=== PATIENT | male | born 1960 | race American Indian/Alaskan Native ===

== ENCOUNTER 2016-06-15 00:57 | Emergency (ER) | payer MEDICARE | END 2016-06-15 02:02 | disposition left against medical advice (07) | LOC: ED 00:57 | DX: Z53.21 Procedure and treatment not carried out due to patient leaving prior to being seen by health care provider (principal) ==

== ENCOUNTER 2016-06-15 08:28 | Emergency (ER) | payer MEDICARE ==
[2016-06-15 08:37] VITALS: BP 115/81
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
== END 2016-06-15 10:54 | disposition home or self-care (01) ==
LOC: ED 08:28
DX: S46.911A Strain of unspecified muscle, fascia and tendon at shoulder and upper arm level, right arm, initial encounter (principal); I10 Essential (primary) hypertension; M79.1 Myalgia; F17.200 Nicotine dependence, unspecified, uncomplicated; V89.2XXA Person injured in unspecified motor-vehicle accident, traffic, initial encounter; Y93.89 Activity, other specified; Y92.89 Other specified places as the place of occurrence of the external cause; Y99.8 Other external cause status
CPT/HCPCS: 99282

== ENCOUNTER 2017-03-24 09:20 | Emergency (ER) | payer MEDICARE, OTHER ==
[2017-03-24 09:43] VITALS: BP 146/89
[2017-03-24 10:05] LABS: Basophils % (Auto) 0.3 % (0.0-1.8); Eosinophils % (Auto) 1.1 % (0.0-4.3); Hematocrit 43.3 % (35.5-45.6); Hemoglobin 13.8 gm/dl (11.8-15.2); Mean Corpuscular HGB Conc 32 % (32-34); Mean Corpuscular Hemoglobin 29 pg (28-32); Mean Corpuscular Volume 90 fl (84-94); Platelet Count 187 K/mm3 (140-440); Red Blood Count 4.84 M/mm3 (3.65-5.03); Red Cell Distribution Width 13.6 % (13.2-15.2); White Blood Count 8.4 K/mm3 (4.5-11.0)
[2017-03-24 10:19] LABS: Bilirubin,Urine NEG (Negative); Blood,Urine LG (Negative); Ketones,Urine NEG (Negative); Leukocyte Esterase,Urine NEG (Negative); Mucus,Urine FEW /HPF; Nitrite,Urine NEG (Negative); Protein,Urine <15 mg/dL mg/dL (Negative); Urobilinogen,Urine < 2.0 mg/dL (<2.0)
[2017-03-24 10:29] LABS: Alanine Aminotransferase 27 units/L (7-56); Albumin 4.2 g/dL (3.9-5); Albumin/Globulin Ratio 1.4 %; Alkaline Phosphatase 97 units/L (35-129); Anion Gap 15 mmol/L; BUN/Creatinine Ratio 16; Blood Urea Nitrogen 13 mg/dL (9-20); Calcium 8.8 mg/dL (8.4-10.2); Carbon Dioxide 28 mmol/L (22-30); Glucose 118 mg/dL (75-100); Lipase 18 units/L (13-60); Potassium 4.4 mmol/L (3.6-5.0); Sodium 142 mmol/L (137-145); Total Protein 7.2 g/dL (6.3-8.2)
== END 2017-03-24 09:49 | disposition left against medical advice (07) ==
LOC: ED 09:20
DX: R10.9 Unspecified abdominal pain (principal); Z53.21 Procedure and treatment not carried out due to patient leaving prior to being seen by health care provider
CPT/HCPCS: 36415; 80053; 81001; 83690; 85025

== ENCOUNTER 2018-12-21 04:33 | Emergency (ER) | payer MEDICARE ==
[2018-12-21] MEDS ORDERED: TORADOL IM ONE (05:12)
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
[2018-12-21 06:27] VITALS: BP 113/72
== END 2018-12-21 06:20 | disposition home or self-care (01) ==
LOC: ED 04:33
DX: S16.1XXA Strain of muscle, fascia and tendon at neck level, initial encounter (principal); S39.012A Strain of muscle, fascia and tendon of lower back, initial encounter; I10 Essential (primary) hypertension; F17.200 Nicotine dependence, unspecified, uncomplicated; Z98.890 Other specified postprocedural states; Z79.899 Other long term (current) drug therapy; V49.49XA Driver injured in collision with other motor vehicles in traffic accident, initial encounter; Y93.89 Activity, other specified; Y92.410 Unspecified street and highway as the place of occurrence of the external cause; Y99.8 Other external cause status
CPT/HCPCS: 72040; 72100; 96372; 99283; J1885

== ENCOUNTER 2019-09-24 05:37 | Emergency (ER) | payer MEDICARE ==
[2019-09-24 05:43] VITALS: BP 113/87
[2019-09-24 06:00] LABS: Basophils % (Auto) 0.3 % (0.0-1.8); Eosinophils # (Auto) 0.1 K/mm3 (0.0-0.4); Eosinophils % (Auto) 1.1 % (0.0-4.3); Hematocrit 43.2 % (35.5-45.6); Hemoglobin 14.2 gm/dl (11.8-15.2); Lymphocytes # (Auto) 1.3 K/mm3 (1.2-5.4); Lymphocytes % (Auto) 24.3 % (13.4-35.0); Mean Corpuscular HGB Conc 33 % (32-34); Mean Corpuscular Volume 89 fl (84-94); Monocytes # (Auto) 0.5 K/mm3 (0.0-0.8); Monocytes % (Auto) 9.4 % (0.0-7.3); Platelet Count 184 K/mm3 (140-440); Red Blood Count 4.85 M/mm3 (3.65-5.03); Red Cell Distribution Width 13.5 % (13.2-15.2)
[2019-09-24 06:20] LABS: Alanine Aminotransferase 210 units/L (7-56); Albumin 4.2 g/dL (3.9-5); BUN/Creatinine Ratio 14; Blood Urea Nitrogen 15 mg/dL (9-20); Calcium 10.2 mg/dL (8.4-10.2); Hemolysis Index 14
[2019-09-24 06:26] LABS: Bilirubin,Urine NEG (Negative); Blood,Urine NEG (Negative); Color,Urine Yellow (Yellow); Mucus,Urine 2+ /HPF; Protein,Urine <15 mg/dL mg/dL (Negative); Urobilinogen,Urine < 2.0 mg/dL (<2.0)
[2019-09-24] MEDS ORDERED: SODIUM CHLORIDE 0.9% 1000 ML 1,000 ML IV ONE (07:11)
[2019-09-24] MEDS ORDERED: PANTOPRAZOLE 40 MG INJ IV ONE (07:11)
--- NOTE | 2019-09-24 07:12 | Emergency Department Report ---
ED Abdominal Pain HPI - General Chief Complaint: Abdominal Pain Stated Complaint: ABDOMINAL PAIN Time Seen by Provider: 09/24/19 07:09 Source: patient Mode of arrival: Ambulatory Limitations: No Limitations - History of Present Illness Initial Comments: 59 YO AA MALE COMES TO ER WITH DIFFUSE ABD PAIN- CRAMPY IN NATURE. NO N/V/D. NO FEVER OR CHILLS. PMH HTN AND CHRONIC BACK PAIN BM YESTERDAY- NORMAL PCP DR FELICIANO AMBULATORY AND NON TOXIC ON EXAM MD Complaint: abdominal pain -: Gradual, days(s) Location: diffuse Migration to: no migration Severity: mild Quality: cramping Consistency: intermittent Improves With: nothing Worsens With: nothing Associated Symptoms: denies other symptoms. denies: nausea, vomiting, diarrhea, fever, chills, constipation, dysuria, hematemesis, hematochezia, melena, hematuria, anorexia, syncope - Related Data Previous Rx's Medication Instructions Recorded Last Taken Type dilTIAZem [Cardizem] 90 mg PO DAILY #30 tablet 06/20/14 Unknown Rx Allergies Allergy/AdvReac Type Severity Reaction Status Date / Time No Known Allergies Allergy Verified 08/01/15 13:31 ED Review of Systems ROS: Stated complaint: ABDOMINAL PAIN Other details as noted in HPI Comment: All other systems reviewed and negative ED Past Medical Hx - Past Medical History Previous Medical History?: Yes Hx Hypertension: Yes Additional medical history: chronic back pain. - Surgical History Past Surgical History?: Yes Additional Surgical History: back surgery 1999 - Family History Family history: no significant - Social History Smoking Status: Current Every Day Smoker Substance Use Type: None - Medications Home Medications: Home Medications Medication Instructions Recorded Confirmed Last Taken Type dilTIAZem [Cardizem] 90 mg PO DAILY #30 tablet 06/20/14 Unknown Rx ED Physical Exam - General Limitations: No Limitations General appearance: alert, in no apparent distress - Head Head exam: Present: atraumatic, normocephalic - Eye Eye exam: Present: normal appearance - ENT ENT exam: Present: mucous membranes moist - Neck Neck exam: Present: normal inspection - Respiratory Respiratory exam: Present: normal lung sounds bilaterally. Absent: respiratory distress - Cardiovascular Cardiovascular Exam: Present: regular rate, normal rhythm. Absent: systolic murmur, diastolic murmur, rubs, gallop - GI/Abdominal GI/Abdominal exam: Present: soft, normal bowel sounds - Rectal Rectal exam: Present: deferred - Extremities Exam Extremities exam: Present: normal inspection - Back Exam Back exam: Present: normal inspection - Neurological Exam Neurological exam: Present: alert, oriented X3 - Psychiatric Psychiatric exam: Present: normal affect, normal mood - Skin Skin exam: Present: warm, dry, intact, normal color. Absent: rash ED Course Vital Signs 09/24/19 05:41 Temperature 98.2 F Pulse Rate 77 Respiratory 18 Rate Blood Pressure 113/87 O2 Sat by Pulse 99 Oximetry - Reevaluation(s) Reevaluation #1: 09/24/19 08:52 HOME RX OXY--NO TYLENOL CARDIZEM ED Medical Decision Making - Lab Data Result diagrams: 09/24/19 05:46 09/24/19 05:46 - Radiology Data Radiology results: report reviewed, image reviewed - Medical Decision Making Labs 09/24/19 09/24/19 09/24/19 05:46 05:46 05:46 WBC 5.2 RBC 4.85 Hgb 14.2 Hct 43.2 MCV 89 MCH 29 MCHC 33 RDW 13.5 Plt Count 184 Lymph % (Auto) 24.3 [place] % (Auto) 9.4 H Eos % (Auto) 1.1 Baso % (Auto) 0.3 Lymph # 1.3 [place] # 0.5 Eos # 0.1 Baso # 0.0 Seg Neutrophils % 64.9 Seg Neutrophils # 3.4 Sodium 142 Potassium 4.5 Chloride 103.0 Carbon Dioxide 26 Anion Gap 18 BUN 15 Creatinine 1.1 Estimated GFR > 60 BUN/Creatinine Ratio 14 Glucose 107 H Calcium 10.2 Total Bilirubin 0.40 AST 140 H ALT 210 H Alkaline Phosphatase 91 Total Protein 7.3 Albumin 4.2 Albumin/Globulin Ratio 1.4 Lipase 14 Urine Color Urine Turbidity Urine pH Ur Specific [place] Urine Protein Urine Glucose (UA) Urine Ketones Urine Blood Urine Nitrite Urine Bilirubin Urine Urobilinogen Ur Leukocyte Esterase Urine WBC (Auto) Urine RBC (Auto) Urine Mucus 09/24/19 Unknown WBC RBC Hgb Hct MCV MCH MCHC RDW Plt Count Lymph % (Auto) [place] % (Auto) Eos % (Auto) Baso % (Auto) Lymph # [place] # Eos # Baso # Seg Neutrophils % Seg Neutrophils # Sodium Potassium Chloride Carbon Dioxide Anion Gap BUN Creatinine Estimated GFR BUN/Creatinine Ratio Glucose Calcium Total Bilirubin AST ALT Alkaline Phosphatase Total Protein Albumin Albumin/Globulin Ratio Lipase Urine Color Yellow Urine Turbidity Clear Urine pH 5.0 Ur Specific [place] 1.025 Urine Protein <15 mg/dl Urine Glucose (UA) Neg Urine Ketones Neg Urine Blood Neg Urine Nitrite Neg Urine Bilirubin Neg Urine Urobilinogen < 2.0 Ur Leukocyte Esterase Neg Urine WBC (Auto) 1.0 Urine RBC (Auto) 2.0 Urine Mucus 2+ Vital Signs 09/24/19 05:41 Temperature 98.2 F Pulse Rate 77 Respiratory 18 Rate Blood Pressure 113/87 O2 Sat by Pulse 99 Oximetry LABS NOTED UA NOTED VS NORMAL NO FEVER AMBULATORY CT NOTED PT HAS PCP THAT HE SEES. PT EDUCATED ON FINDINGS OF TODAYS LABS EDUCATED ON LFT PT TAKING PO PT TO DC HOME WITH PCP AND GI FOLLOW UP. PT VERBALIZES UNDERSTANDING - Differential Diagnosis RO DIVERTICULAR DISEASE/ OSTRUCTION/CONSTIPATION Critical care attestation.: If time is entered above; I have spent that time in minutes in the direct care of this critically ill patient, excluding procedure time. ED Disposition Clinical Impression: Abdominal pain Disposition: DC-01 TO HOME OR SELFCARE Is pt being admited?: No Does the pt Need Aspirin: No Condition: Stable Additional Instructions: FOLLOW UP WITH GI DOCTOR REFERRAL BELOW AVOID TYLENOL YOU NEED TO MONITOR YOUR LIVER ENZYMES FOLLOW UP WITH PCP MAKE SURE YOU ARE TAKING A STOOL SOFTENER WITH YOUR OXY DIET AND ACTIVITY TOLERATED STAY WELL HYDRATED WITH WATER. Referrals: GILBERT NOVA MD [Staff Physician] - 3-5 Days Time of Disposition: 08:50
--- NOTE | 2019-09-24 08:37 | Cat Scan Report ---
CT ABDOMEN AND PELVIS W CON INDICATION / CLINICAL INFORMATION: MAIN: abd pain 100ml Omni 300 low abd an scrotal pain x 2 weeks. TECHNIQUE: All CT scans at this location are performed using CT dose reduction for ALARA by means of automated e xposure control. COMPARISON: None available. FINDINGS: No free fluid is seen in the abdomen. Bilateral renal cysts are present more numerous on the right th an the left. Mild atherosclerotic changes present without evidence of an aneurysm. No enlarged mesent nohemy or retroperitoneal lymph nodes are seen. The liver, spleen, pancreas and adrenal glands are norm al. In the pelvis, no free fluid is seen. No enlarged lymph nodes are identified. The bladder and the douglas endix are normal. IMPRESSION: 1. Bilateral renal cysts 2. Mild atherosclerotic change without evidence of an aneurysm 3. No acute findings Signer Name: Ceferino Colin MD FACR Signed: 09/24/2019 8:32 AM Workstation Name: [id number]
== END 2019-09-24 08:59 | disposition home or self-care (01) ==
LOC: ED 05:37
DX: R10.9 Unspecified abdominal pain (principal); I10 Essential (primary) hypertension; F17.200 Nicotine dependence, unspecified, uncomplicated; Z79.899 Other long term (current) drug therapy; Z98.890 Other specified postprocedural states
CPT/HCPCS: 36415; 74177; 80053; 81001; 83690; 85025; 96374; 99284; C9113; J7030; Q9967